=== PATIENT | female | born 1940 | race Caucasian/White ===

== ENCOUNTER 2017-03-03 09:05 | Outpatient (CLI) | payer OTHER ==
--- NOTE | 2017-03-03 09:53 | DIAGNOSTIC IMAGING REPORT ---
PROCEDURE: DEXA BONE DENSITY STUDY CLINICAL INDICATION: SCREENING COMPARISON: None. FINDINGS: LUMBAR SPINE: Bone mineral density 0.840, T-score -1.9, osteopenia LEFT HIP: Bone mineral density 0.752, T-score -1.6, osteopenia LEFT FEMORAL NECK: Bone mineral density 0.584, T-score -2.4, osteopenia. (T score greater or equal to -1.0 to: NORMAL) (T score from -1.1 to -2.4: OSTEOPENIA) (T score ess than or equal to -2.5: OSTEOPOROSIS) IMPRESSION: 1. Lumbar spine and left hip osteopenia 2. 10-year fracture risk: Major osteoporotic fracture 17%, hip fracture 5.6%.
--- NOTE | 2017-03-03 11:52 | DIAGNOSTIC IMAGING REPORT ---
PROCEDURE: MG BILATERAL SCREENING W/CAD INDICATION: Screening. New baseline. Family history breast carcinoma (aunt). TECHNIQUE: Bilateral CC and MLO digital views. COMPARISON: None. FINDINGS: Computer-aided detection applied. Moderately dense with a few dystrophic calcification. No evidence of mass or suspicious calcification. IMPRESSION: 1. Negative mammogram RESULT CODE: 1- Negative. A. A negative report should not delay biopsy if a dominant or clinically suspicious mass is present. 10-15% of cancers are not identified by x-ray. B. A negative report may reinforce clinical impression. C. Adenosis and dense breasts may obscure an underlying neoplasm. D. False positive reports average 6-10%. E.. A yearly screening mammogram is recommended. A reminder letter will be scheduled.
--- NOTE | 2017-03-11 14:57 | DIAGNOSTIC IMAGING REPORT ---
REFERRING PHYSICIAN/PROVIDER: Tg Nicholson MD CONSULTING MISSILE INSPECTOR PREFLIGHT: Hosea Hilario MD PROCEDURE: M-mode 2D echocardiography with spectral and color flow Doppler TECHNICAL QUALITY: Fair INDICATION: DIASTOLIC DYSFUNCTION RHYTHM DURING PROCEDURE: Sinus rhythm and sinus bradycardia INTERPRETATIONS: LEFT VENTRICLE: There is mild concentric left ventricular hypertrophy. The posterior wall measures 1.1 cm and the septal wall is also 1.1 cm. There is normal left ventricular size. There is normal left ventricular systolic function (LVEF = 60%). Grade I diastolic dysfunction. RIGHT VENTRICLE: There is normal right ventricular size and systolic function ATRIA: Normal biatrial size. MITRAL VALVE: There is mild mitral annular calcification. There is moderate mitral regurgitation AORTIC VALVE: The aortic valve is trileaflet. There is no significant aortic stenosis. There is trace aortic regurgitation. TRICUSPID VALVE: Normal tricuspid valve leaflets. There is mild tricuspid regurgitation. The estimated right ventricular systolic pressure is 23 mmHg. PULMONIC VALVE: There is trace pulmonic regurgitation GREAT VESSELS: Normal ascending aorta. PERICARDIUM: No evidence of a pericardial effusion. IMPRESSION: 1. Mild concentric left ventricular hypertrophy 2. Normal biventricular size and systolic function (LVEF = 60%) 3. Normal biatrial size 4. Moderate aortic regurgitation 5. Grade I diastolic dysfunction 6. Normal right ventricular systolic pressure
== END 2017-03-03 23:00 ==
LOC: MAM SRH 09:05
DX: I51.9 Heart disease, unspecified (principal); M85.89 Other specified disorders of bone density and structure, multiple sites; Z12.31 Encounter for screening mammogram for malignant neoplasm of breast; Z80.3 Family history of malignant neoplasm of breast; I35.1 Nonrheumatic aortic (valve) insufficiency